=== PATIENT | male | born 1960 | race Caucasian/White ===

== ENCOUNTER 2023-06-23 07:33 | Outpatient (CLI) | payer BC, OTHER ==
--- NOTE | 2023-06-23 08:16 | CARDIAC PROCEDURE NOTE ---
Stress Test Report Service Date: 06/23/23 Service Time: 08:00 Ordering Provider: Trinity West CFNP Indication for Test: Risk stratification in patient with multiple CAD risk factors and an abnormal clinic EKG. Significant Medical History: Hari has been referred for a treadmill stress echocardiogram after a comprehensive visit to establish care at the [facility]. At that visit he reported a history of treatment in [place] for cerebral aneurysm in the early , that was successful, though he has been on seizure meds since then for post-operative seizures. At that time he was also initiated on therapy for hypertension and hyperlipidemia. When seen in clinic a few weeks ago an EKG was concerning for possible prior inferior infarct, though on review of this tracing I suspect the findings are probably explained by a left anterior fascicular block. Hari reports walking or hiking nearly daily on routes that include hills, without experiencing any chest pain, undue shortness of breath, or concern for reduction of his stamina. His anti- hypertensive therapy was recently augmented with addition of a second med (probably lisinopril) and he is pending further review of blood pressure follow- up. He takes his meds at night, including last evening. Cardiac Risk Factors: Positive for hypertension and hyperlipidemia, both treated for approximately 10 years; history of tobacco smoking in the past though quit in 1981 so likely not a major risk at this point in time. Negative for history of diabetes and family history of known coronary artery disease Type of Stress Test: ETT with Echocardiography Procedure: -Exercise Treadmill Test- After signing informed consent, the patient underwent echo imaging at rest and then performed treadmill exercise using a Beck protocol. The patient exercised for 5 minutes 38 seconds and achieved a peak heart rate of 174 (110 percent predicted maximum heart rate for age), and an estimated workload of 7.1 METS. The test was terminated due to apparent neuromuscular fatigue, resulting in difficulty keeping up with the treadmill. Resting heart rate: 97 Peak heart rate: 174 Normal response to exercise. Resting BP: 149/97 Peak BP: 171/93 Hypertensive at rest with normal increase of systolic, and decrease of diastolic, BPs in response to exercise. Rhythm during exercise: Sinus rhythm throughout, with a single PVC triplet in early recovery. Symptoms: No description of chest pressure/discomfort/pain or other cardiovascular symptoms. EKG at rest showed normal sinus rhythm with normal axis, fully normal throughout. EKG at peak stress showed no ischemia by EKG criteria. In Recovery heart rate and BPs rapidly/normally returned towards baseline levels. Echo imaging, performed at rest and with stress, will be reported separately. IFran MD, was present throughout this treadmill stress study and supervised it in its entirety. Summary: 1) Exercise tolerance significantly reduced for age and sex as evidenced by CLARK of 27%. 2) Normal resting EKG. 3) Adequate level of exercise was achieved on this treadmill stress test. 4) Elevated BP at rest with normal response to exercise. 5) No ischemic changes by EKG criteria were seen at peak stress. 6) Echo image interpretation reveals normal left ventricular size and systolic function, with appropriate hyperdynamic augmentation of all segments with exercise, indicating no evidence of prior infarct or inducible ischemia. No significant valvular abnormality or elevation of estimated pulmonary artery systolic pressure seen on screening study. LV wall thickness normal except for a basal septal segment that does not appear obstructive. See separate report for more details. Conclusions and Recommendations: 1) As mentioned above, I suspect the clinic EKG was abnormal due to the presence of a left anterior fascicular block, that can be seen in chronic hypertension, though resolved since the visit; this is a finding that can come and go. 2) Reassuring treadmill stress echocardiogram without symptom, EKG or echo evidence of inducible myocardial ischemia. 3) Reduced exercise capacity for age, possibly impacted by mild chronic neurologic residua from prior cerebral aneurysm and its treatment.
== END 2023-06-23 07:34 | disposition home or self-care (01) ==
LOC: DI 07:33
PROVIDERS: ATTEND Nurse Practitioner Family
DX: R94.31 Abnormal electrocardiogram [ECG] [EKG] (principal); E78.5 Hyperlipidemia, unspecified; I10 Essential (primary) hypertension
CPT/HCPCS: 93350

== ENCOUNTER 2023-08-04 10:28 | Outpatient (CLI) | payer BC, OTHER ==
[2023-08-04 17:53] LABS: BASOPHILS % (AUTO) 0.8 %; EOSINOPHILS % (AUTO) 0.8 %; HCT - HEMATOCRIT 39.1 % (42.0-52.0); HGB - HEMOGLOBIN 13.6 g/dL (14.0-18.0); LYMPHOCYTES # (AUTO) 0.5 10^3/uL (1.5-3.5); LYMPHOCYTES % (AUTO) 10.4 %; MEAN CORPUSCULAR HEMOGLOBIN 33.2 pg (27.0-31.0); MEAN CORPUSCULAR HGB CONC 34.8 g/dL (32.0-36.0); MEAN CORPUSCULAR VOLUME 95.4 fL (80.0-94.0); MEAN PLATELET VOLUME 8.8 fL (7.4-11.4); MONOCYTES # (AUTO) 0.6 10^3/uL (0.0-1.0); MONOCYTES % (AUTO) 11.9 %; NEUTROPHILS # (AUTO) 3.7 10^3/uL (1.5-6.6); NEUTROPHILS % (AUTO) 75.7 %; PLT - PLATELET COUNT 158 10^3/uL (130-450); RED CELL DISTRIBUTION WIDTH 11.2 % (12.0-15.0); WHITE BLOOD COUNT 4.9 x10^3/uL (4.8-10.8)
[2023-08-04 18:08] LABS: ALBUMIN 4.9 g/dL (3.2-5.5); ALBUMIN/GLOBULIN RATIO 1.5 (1.0-2.2); ALKALINE PHOSPHATASE 50 IU/L (42-121); ALT ALANINE AMINOTRANSFERASE 52 IU/L (10-60); AST ASPARTATE AMINOTRANSFERASE 64 IU/L (10-42); BILIRUBIN,TOTAL 0.8 mg/dL (0.2-1.0); BUN - BLOOD UREA NITROGEN 6 mg/dL (6-20); CALCIUM 9.9 mg/dL (8.5-10.3); CARBON DIOXIDE - CO2 23 mmol/L (21-32); CHLORIDE 91 mmol/L (101-111); CHOL/HDL RATIO 1.4 (<5.0); CHOLESTEROL 168 mg/dL; CREATININE 0.6 mg/dL (0.6-1.3); GFR - MDRD 136 (>89); GLUCOSE 91 mg/dL (74-104); HDL CHOLESTEROL 116 mg/dL; LDL CHOLESTEROL,CALCULATED 42 mg/dL; LDL/HDL RATIO 0.4 (<3.6); PHENYTOIN (DILANTIN) 3.5 ug/mL; POTASSIUM 4.3 mmol/L (3.5-4.5); SODIUM 126 mmol/L (135-145); TOTAL PROTEIN 8.2 g/dL (6.4-8.9); TRIGLYCERIDES 49 mg/dL (48-352); VLDL CHOLESTEROL 10 mg/dL
[2023-08-04 18:20] LABS: THYROID STIMULATING HORMONE 2.18 uIU/mL (0.34-5.60)
== END 2023-08-04 10:29 | disposition home or self-care (01) ==
LOC: LAB.N 10:28
PROVIDERS: ATTEND Nurse Practitioner Family
DX: E78.5 Hyperlipidemia, unspecified (principal); I10 Essential (primary) hypertension; Z12.5 Encounter for screening for malignant neoplasm of prostate; G40.909 Epilepsy, unspecified, not intractable, without status epilepticus
CPT/HCPCS: 36415; 80053; 80061; 80177; 80185; 83721; 84153; 84443; 85025